=== PATIENT | female | born 2000 | race Caucasian/White ===

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

== ENCOUNTER 2021-04-27 16:34 | Emergency (ER) | payer OTHER, SELFPAY ==
[2021-04-27 16:42] VITALS: O2SAT 100
[2021-04-27 16:45] VITALS: BP 121/62; PULSE 79; RESP 16; TEMP 36.8
--- NOTE | 2021-04-27 16:58 | ED.GENADULT ---
HPI - General Adult General Chief complaint: Skin/Abscess/Foreign Body Stated complaint: Torn Nail Time Seen by Provider: 04/27/21 16:48 Source: patient and RN notes reviewed Mode of arrival: ambulatory Limitations: no limitations History of Present Illness HPI narrative: Patient presents today complaining of a torn left fifth fingernail. Yesterday she was canoeing and snagged her fingernail on the boat, a part of the fingernail from her nailbed. States she disinfected and wrapped the fingernail, but continues to have pain. States she was sent here from her work to get it taken care of. complaint: Torn fingernail Related Data Home Medications Medication Instructions Recorded Confirmed escitalopram oxalate [Lexapro] 20 mg PO DAILY 04/27/21 04/27/21 Allergies Allergy/AdvReac Type Severity Reaction Status Date / Time sumatriptan Allergy Mild Other Verified 04/27/21 16:47 Review of Systems Review of Systems: Narrative: CONSTITUTIONAL: Denies body aches, fever, chills, or sweats. EYES: Denies visual changes, redness, or discharge. ENT: Denies rhinorrhea, congestion, sore throat, or otalgia. CARDIOVASCULAR: Denies chest pain, palpitations, or edema. RESPIRATORY: Denies cough or dyspnea. GASTROINTESTINAL: Denies abdominal pain, nausea, vomiting, or diarrhea. GENITOURINARY: Denies dysuria or hematuria. SKIN: Denies rash, itching, or wounds.+ Torn fingernail MUSCULOSKELETAL: Denies back pain, joint pain, or myalgia. NEUROLOGIC: Denies headache, numbness, tingling, or weakness. PSYCH: Denies depression or anxiety. [facility] Past Medical History Medical History (Updated 04/27/21 @ 17:03 by Iwona Love, FELICITAS, BC) Migraine headache Surgical History Surgical History H/O wisdom tooth extraction Social History Social History Smoking status: Never smoker Alcohol intake: never Substance use: never Gender identity (if verbalized by the patient): Female Comments At time of signature, I have reviewed and agree with nursing past medical, surgical, social and family history unless otherwise noted. Please see nursing chart for further information. There is no relevant family history pertinent to the presenting complaint Exam Narrative: Exam Narrative: GENERAL: Well-appearing, well-nourished, and in no acute distress. HEAD: Normocephalic, atraumatic. EYES: EOMI. No redness or drainage. Conjunctivae normal. ENT: Mucous membranes pink and moist. NECK: Normal AROM. . CHEST: No respiratory distress. EXTREMITIES: Normal range of motion. No edema. SKIN: Warm, dry, no rash. Capillary refill normal. Normal skin turgor. Left 5th fingernail. Long acrylic fingernail intact. Pain with any movement of the nail. Patient reports the radial side of the nail is . No active bleeding. Distal sensation intact. Capillary refill normal. NEURO: No focal deficits. Alert and oriented x3. Gait steady. PSYCH: Normal affect. No signs of depression or anxiety. Course Vital Signs Vital signs: Vital Signs Pulse Oximetry 100 04/27/21 16:42 Temperature 98.3 F 04/27/21 16:45 Pulse Rate 79 04/27/21 16:45 Respiratory Rate 16 04/27/21 16:45 Blood Pressure 121/62 04/27/21 16:45 Pulse Oximetry 100 04/27/21 16:42 Reviewed. Pt has been instructed to follow up with her PCP regarding her elevated blood pressure today. Procedures Other Procedure Procedure 1: Other Procedure: Long fingernail was trimmed down short and dressed with bandaid. Patient tolerated procedure well. No signs of infection. Medical Decision Making Differential Diagnosis Differential Diagnosis: Fingernail avulsion, nailbed laceration Vital Signs Vital Signs: Vital Signs Pulse Oximetry 100 04/27/21 16:42 Temperature 98.3 F 04/27/21 16:45 Pulse Rate 79 04/27/21 16:45 R
== END 2021-04-27 17:07 | disposition home or self-care (01) ==
PROVIDERS: Emergency Provider Nurse Practitioner; PCP Family Medicine
DX: S61.307A Unspecified open wound of left little finger with damage to nail, initial encounter (principal); W22.8XXA Striking against or struck by other objects, initial encounter
CPT/HCPCS: 99212; G0463

== ENCOUNTER 2021-06-05 10:17 | Emergency (ER) | payer SELFPAY ==
[2021-06-05 10:24] VITALS: BP 118/63; PULSE 98; RESP 18; TEMP 37.2; O2SAT 100
--- NOTE | 2021-06-05 10:37 | ED.URI ---
HPI - URI/Sore Throat General Chief Complaint: Upper Respiratory Infection Stated Complaint: congestion Time Seen by Provider: 06/05/21 10:28 Source: patient and RN notes reviewed Mode of arrival: ambulatory Limitations: no limitations History of Present Illness HPI Narrative: Patient presents today with a 3-day history of nasal congestion, scratchiness in the throat, postnasal drip, chills. Denies cough, known fever, sore throat. Patient has taken Tylenol Cold and flu for the last 2 days without relief. She has been vaccinated against COVID-19. MD elicited complaint: nasal congestion Related Data Home Medications Medication Instructions Recorded Confirmed venlafaxine 37.5 mg PO DAILY 06/05/21 06/05/21 Allergies Allergy/AdvReac Type Severity Reaction Status Date / Time sumatriptan Allergy Mild Other Verified 06/05/21 10:29 Review of Systems Review of Systems: CONSTITUTIONAL: Denies body aches, fever, or sweats.+ Chills EYES: Denies visual changes, redness, or discharge. ENT: Denies rhinorrhea, sore throat, or otalgia.+ Congestion, postnasal drip, scratchiness in the throat CARDIOVASCULAR: Denies chest pain, palpitations, or edema. RESPIRATORY: Denies cough or dyspnea. GASTROINTESTINAL: Denies abdominal pain, nausea, vomiting, or diarrhea. GENITOURINARY: Denies dysuria or hematuria. SKIN: Denies rash, itching, or wounds. MUSCULOSKELETAL: Denies back pain, joint pain, or myalgia. NEUROLOGIC: Denies headache, numbness, tingling, or weakness. PSYCH: Denies depression or anxiety. [facility] Past Medical History Medical History (Updated 06/05/21 @ 10:41 by Iwona Love, IT DIRECTOR, ) Migraine headache Surgical History Surgical History H/O wisdom tooth extraction Social History Social History Smoking status: Never smoker Alcohol intake: never Substance use: never Gender identity (if verbalized by the patient): Female Comments At time of signature, I have reviewed and agree with nursing past medical, surgical, social and family history unless otherwise noted. Please see nursing chart for further information. There is no relevant family history pertinent to the presenting complaint Exam Narrative: GENERAL: Well-appearing, well-nourished, and in no acute distress. HEAD: Normocephalic, atraumatic. EYES: EOMI. No redness or drainage. Conjunctivae normal. ENT: Mucous membranes pink and moist. Nares congested. No rhinorrhea. TMs normal bilaterally. Throat normal. Uvula midline. NECK: Normal AROM. Supple. No lymphadenopathy. CHEST: No respiratory distress. Clear to auscultation. HEART: Regular rate and rhythm. No murmur appreciated. Normal peripheral pulses. EXTREMITIES: Normal range of motion. No edema. SKIN: Warm, dry, no rash. Capillary refill normal. Normal skin turgor. NEURO: No focal deficits. Alert and oriented x3. Gait steady. PSYCH: Normal affect. No signs of depression or anxiety. Course Vital Signs Vital signs: Vital Signs Temperature 99.0 F 06/05/21 10:24 Pulse Rate 98 06/05/21 10:24 Respiratory Rate 18 06/05/21 10:24 Blood Pressure 118/63 06/05/21 10:24 Pulse Oximetry 100 06/05/21 10:24 Temperature 99.0 F 06/05/21 10:24 Pulse Rate 98 06/05/21 10:24 Respiratory Rate 18 06/05/21 10:24 Blood Pressure 118/63 06/05/21 10:24 Pulse Oximetry 100 06/05/21 10:24 Reviewed MDM - URI/Sore Throat Differential Diagnosis Differential diagnosis: Likely upper respiratory infection, sinusitis and viral infection Critical Care Time Critical Care Time Critical Care Time: No Discharge Plan Discharge Clinical Impression: Upper respiratory infection Qualifiers: URI type: unspecified URI Qualified Code(s): J06.9 - Acute upper respiratory infection, unspecified Patient Disposition: Home, Self-Care Condition: Stable Instruction
== END 2021-06-05 10:44 | disposition home or self-care (01) ==
PROVIDERS: Emergency Provider Nurse Practitioner; PCP Family Medicine
DX: J06.9 Acute upper respiratory infection, unspecified (principal)
CPT/HCPCS: 99211; G0463

== ENCOUNTER 2021-10-12 15:21 | Emergency (ER) | payer OTHER, SELFPAY ==
--- NOTE | ~2021-10-12 | XR_ITS ---
EXAMINATION: XR chest 2V EXAM DATE: 10/12/2021 16:11 INDICATION: Wheezing, right lower lung region. TECHNIQUE: Frontal and lateral projections of the chest obtained and reviewed. There is no prior terry dy for comparison. FINDINGS: The lungs are clear. There are no pleural effusions. The cardiomediastinal silhouette is within normal limits. There is no pneumothorax suspected. There is about 30 degrees of thoracic dex troscoliosis as measured between T6 and T10. IMPRESSION: Clear lungs. Mild to moderate thoracic dextroscoliosis. Reviewed, dictated and finalized at location B. [employer]
[2021-10-12 15:29] VITALS: BP 130/71; PULSE 77; RESP 16; TEMP 37; O2SAT 99
--- NOTE | 2021-10-12 15:57 | ED.URI ---
HPI - URI/Sore Throat General Chief Complaint: Upper Respiratory Infection Stated Complaint: Congestion Time Seen by Provider: 10/12/21 15:57 Source: patient, RN notes reviewed and old records reviewed Mode of arrival: ambulatory Limitations: no limitations History of Present Illness HPI Narrative: 21-year-old female presents to the [facility] with complaints of cough, congestion for the last 5 days. Has tried some Tylenol Cold and sinus with no relief. Related Data Allergies Allergy/AdvReac Type Severity Reaction Status Date / Time sumatriptan Allergy Mild Other Verified 10/12/21 16:18 Review of Systems Review of Systems: All systems reviewed & are unremarkable except as noted in HPI and below Constitutional: Constitutional: Reports no additional constitutional complaints, Denies chills and Denies fever(s) Eyes: Eyes: Reports no additional eye complaints ENT: Reports system reviewed and no additional complaints, except as documented and Denies sore throat Cardiovascular: Cardiovascular: Reports no additional cardiovascular complaints Respiratory: Respiratory: Reports as per HPI, Denies chest congestion, Reports cough, Denies dyspnea and Denies wheezing Gastrointestinal: Gastrointestinal: Reports no additional gastrointestinal complaints Genitourinary: Genitourinary: Reports no additional female genitourinary complaints Musculoskeletal: Musculoskeletal: Reports no additional musculoskeletal complaints Integumentary/Breasts: Skin/Breast: Reports system reviewed and no additional complaints, except as docu Neurologic: Reports system reviewed and no additional complaints, except as documented Psychiatric: Psychiatric: Reports no additional psychiatric complaints Allergic/Immunologic: Allergic/Immunologic: Reports no additional allergic/immunologic complaints PMFSH Past Medical History Medical History (Updated 10/12/21 @ 16:43 by Swati Clemons) Migraine headache Surgical History Surgical History H/O wisdom tooth extraction Social History Social History Smoking status: Never smoker Alcohol intake: never Substance use: never Gender identity (if verbalized by the patient): Female Comments At the time of my signature, I reviewed and agree with the nursing past medical, surgical, social, and family history. There is no relevant family history pertinent to the patient complaint. Exam Const: General: healthy appearing, no acute distress and alert Nutritional Appearance: well nourished Orientation/consciousness: patient oriented x3 Limitations: no limitations HENMT: Head: normal to inspection Ears: external ears normal, TM's normal bilaterally and EAC's normal Eyes: Conjunctivae: conjunctivae normal Pupils: Equal, round and reactive pupils present Neck: Neck: normal visual inspection and no lymphadenopathy Chest: Chest palpation & inspection: normal inspection of the chest Resp: Auscultation: wheezes right lower Cardio: Rate: regular rate Rhythm: regular rhythm GI: GI Palp: Yes Soft to palpation and No Tenderness to palpation present (GI) : General: Yes no CVA tenderness Back/Spine/Pelvis: Back: no CVA tenderness Skin: General skin exam: normal color Rashes: no rashes Wounds: no wounds Neuro: General: patient oriented x3, moves all extremities, no meningeal signs and no focal motor deficits Speech: normal speech Gait exam (Neuro): Normal gait present Extrem: General: normal to inspection Psych: Appearance: grossly normal and well kempt Mental Status: mental status grossly normal Affect: normal affect Attitude: cooperative Thought content: Yes Normal thought content present Course Course Emergency Course: Discharge instructions reviewed with patient, as well as provided in writing per nursing staff. The instructions also include specific and strict return/GO TO THE ER as wel
== END 2021-10-12 16:45 | disposition home or self-care (01) ==
PROVIDERS: Emergency Provider Nurse Practitioner; PCP Family Medicine
DX: J40 Bronchitis, not specified as acute or chronic (principal)
CPT/HCPCS: 71046; 87081; 87880; 99213; G0463

== ENCOUNTER 2022-04-10 08:35 | Emergency (ER) | payer OTHER, SELFPAY ==
[2022-04-10 08:43] VITALS: BP 112/64; PULSE 80; RESP 21; TEMP 36.8; O2SAT 100
--- NOTE | 2022-04-10 09:13 | ED.FEMALEGU ---
HPI - Female Genitourinary General Chief complaint: Urogenital-Female Stated complaint: UTI Time Seen by Provider: 04/10/22 09:13 Source: patient, RN notes reviewed and old records reviewed Mode of arrival: ambulatory Limitations: no limitations History of Present Illness HPI Narrative: 21-year-old female presents to the [facility] with complaints of 2 days of burning with urination. Denies any chance of , last menstrual period was 1 week ago. Denies abdominal pain, chest pain. No fevers. No nausea vomiting or diarrhea. Has tried to increase her water intake with no relief. Onset (ago): day(s) (2) Vaginal discharge: none Date of Last Menstrual Period: 04/03/22 Related Data Allergies Allergy/AdvReac Type Severity Reaction Status Date / Time sumatriptan Allergy Mild Other Verified 04/10/22 08:48 Review of Systems Review of Systems: All systems reviewed & are unremarkable except as noted in HPI and below Constitutional: Constitutional: Reports no additional constitutional complaints, Denies chills and Denies fatigue Eyes: Eyes: Reports no additional eye complaints ENT: Reports system reviewed and no additional complaints, except as documented Cardiovascular: Cardiovascular: Reports no additional cardiovascular complaints Respiratory: Respiratory: Reports no additional respiratory complaints Gastrointestinal: Gastrointestinal: Reports no additional gastrointestinal complaints, Denies abdominal pain, Denies diarrhea, Denies nausea and Denies vomiting Genitourinary: Genitourinary: Reports as per HPI (Urinary frequency and cloudy urine), Reports dysuria, Denies flank pain and Denies vaginal discharge Musculoskeletal: Musculoskeletal: Reports no additional musculoskeletal complaints and Denies back pain Integumentary/Breasts: Skin/Breast: Reports system reviewed and no additional complaints, except as docu Neurologic: Reports system reviewed and no additional complaints, except as documented Psychiatric: Psychiatric: Reports no additional psychiatric complaints Endocrine: Endocrine: Denies fatigue Allergic/Immunologic: Allergic/Immunologic: Reports no additional allergic/immunologic complaints [facility] Past Medical History Medical History (Updated 04/10/22 @ 09:20 by Swati Clemons APRN) Migraine headache Surgical History Surgical History H/O wisdom tooth extraction Social History Social History Smoking status: Never smoker Alcohol intake: never Substance use: never Gender identity (if verbalized by the patient): Female Comments At the time of my signature, I reviewed and agree with the nursing past medical, surgical, social, and family history. There is no relevant family history pertinent to the patient complaint. Exam Const: General: healthy appearing, no acute distress and alert Nutritional Appearance: well nourished Orientation/consciousness: patient oriented x3 Limitations: no limitations HENMT: Head: normal to inspection Eyes: Conjunctivae: conjunctivae normal Pupils: Equal, round and reactive pupils present Neck: Neck: normal visual inspection, no lymphadenopathy and no meningeal signs Chest: Chest palpation & inspection: normal inspection of the chest and abnormal inspection of the chest Resp: Effort & Inspection: normal respiratory effort Auscultation: clear to auscultation bilaterally Cardio: Rate: regular rate Rhythm: regular rhythm GI: GI Palp: Yes Soft to palpation and No Tenderness to palpation present (GI) : General: Yes no CVA tenderness Back/Spine/Pelvis: Back: no CVA tenderness Skin: General skin exam: normal color Rashes: no rashes Wounds: no wounds Neuro: General: patient oriented x3, moves all extremities, no meningeal signs and no focal motor deficits Cranial nerves: Yes Equal, round and reactive pupils present Speech: normal speech Gai
== END 2022-04-10 09:28 | disposition home or self-care (01) ==
PROVIDERS: Emergency Provider Nurse Practitioner; PCP Family Medicine
DX: N30.01 Acute cystitis with hematuria (principal); J45.990 Exercise induced bronchospasm
CPT/HCPCS: 81003; 87077; 87086; 87088; 99213; G0463